=== PATIENT | male | born 2000 | race African-American/Black ===

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

== ENCOUNTER 2022-07-10 07:07 | Emergency (ER) | payer OTHER ==
[2022-07-10 07:58] LABS: #Monocytes 0.5 10x3/uL (0.0-1.1); #Neutrophils 3.5 10x3/uL (1.5-8.4); %Basophils 0.3 % (0.0-2.0); %Eosinophils 0.6 % (0.0-6.0); %Lymphocytes 40.1 % (18.0-47.0); %Monocytes 7.5 % (0.0-10.0); %Neutrophils 51.4 % (40.0-75.0); Hemoglobin 14.9 g/dL (13.5-17.5); Mean Corpuscular HGB CONC 34.4 g/dL (32.0-36.0); Mean Corpuscular Hemoglobin 29.5 pg (27.0-33.0); Mean Corpuscular Volume 85.7 fl (81.2-95.1); Mean Platelet Volume 8.4 fl (7.4-10.4); Platelet Count 322 10x3/uL (150-450); RBC Distribution Width 12.1 % (11.5-14.5); Red Blood Cell (RBC) Count 5.05 10x6/uL (4.32-5.72); White Blood Cell (WBC) Count 6.8 10x3/uL (3.5-10.5)
[2022-07-10] MEDS ORDERED: Ondansetron PF 4 MG/2 ML Vial ONE (07:59)
[2022-07-10] MEDS ORDERED: Ketorolac Tromethamine 30 MG/ML VIAL ONE (08:00)
[2022-07-10 08:13] LABS: ALT (SGPT) 17 U/L (8-55); AST (SGOT) 22 U/L (5-34); Albumin 4.4 g/dL (3.5-5.0); Alkaline Phosphatase 55 U/L (50-130); Anion Gap 12 mmol/L (10-20); BUN (Urea Nitrogen) 4 mg/dL (8.9-20.6); Bilirubin, Total 1.7 mg/dL (0.2-1.2); Calc. Creatinine Clearance 0 mL/min (70-130); Calcium 9.6 mg/dL (7.8-10.44); Carbon Dioxide 27 mmol/L (22-29); Chloride 104 mmol/L (98-107); Estimated GFR 104; Globulin 2.8 g/dL (2.4-3.5); Glucose 100 mg/dL (70-105); Lipase 35 U/L (8-78); Potassium 3.3 mmol/L (3.5-5.1); Protein, Total 7.2 g/dL (6.0-8.3); Sodium 140 mmol/L (136-145)
[2022-07-10] MEDS ORDERED: Dicyclomine 20 MG TAB ONE (10:38)
== END 2022-07-10 10:55 | disposition home or self-care (01) ==
LOC: CSHERS 07:07
DX: R10.84 Generalized abdominal pain (principal); R11.2 Nausea with vomiting, unspecified
CPT/HCPCS: 74177; 80053; 83690; 85025; 96374; 96375; J1885; J2405

== ENCOUNTER 2022-07-16 15:34 | Emergency (ER) | payer OTHER ==
[2022-07-16] MEDS ORDERED: Ketorolac Tromethamine 30 MG/ML VIAL ONE (16:12)
[2022-07-16] MEDS ORDERED: Ondansetron ODT 4 MG TAB ONE (16:12)
[2022-07-16 16:17] LABS: #Eosinphils 0.1 10x3/uL (0.0-0.5); #Monocytes 0.7 10x3/uL (0.0-1.1); #Neutrophils 4.3 10x3/uL (1.5-8.4); %Basophils 0.1 % (0.0-2.0); %Lymphocytes 24.7 % (18.0-47.0); %Monocytes 10.5 % (0.0-10.0); %Neutrophils 63.7 % (40.0-75.0); Hemoglobin 14.3 g/dL (13.5-17.5); Mean Corpuscular HGB CONC 33.9 g/dL (32.0-36.0); Mean Corpuscular Hemoglobin 29.5 pg (27.0-33.0); Mean Corpuscular Volume 87.2 fl (81.2-95.1); Mean Platelet Volume 8.3 fl (7.4-10.4); Platelet Count 289 10x3/uL (150-450); RBC Distribution Width 12.3 % (11.5-14.5); Red Blood Cell (RBC) Count 4.84 10x6/uL (4.32-5.72); White Blood Cell (WBC) Count 6.7 10x3/uL (3.5-10.5)
[2022-07-16 16:30] LABS: ALT (SGPT) 14 U/L (8-55); AST (SGOT) 12 U/L (5-34); Alkaline Phosphatase 44 U/L (50-130); Anion Gap 13 mmol/L (10-20); BUN (Urea Nitrogen) Less than 4 mg/dL (8.9-20.6); Bilirubin, Total 0.7 mg/dL (0.2-1.2); Calc. Creatinine Clearance 0 mL/min (70-130); Calcium 9.1 mg/dL (7.8-10.44); Carbon Dioxide 26 mmol/L (22-29); Chloride 108 mmol/L (98-107); Estimated GFR 122; Globulin 2.1 g/dL (2.4-3.5); Glucose 101 mg/dL (70-105); Lipase 15 U/L (8-78); Protein, Total 6.1 g/dL (6.0-8.3); Sodium 143 mmol/L (136-145)
[2022-07-16 16:35] LABS: Bilirubin Neg (Negative); Blood, Urine Negative (Negative); Clarity Clear (Clear); Glucose, Urine (Dipstick) Normal (Negative); Ketone, Urine Negative (Negative); Leukocyte Negative (Negative); Nitrite Negative (Negative); Protein, Urine (Dipstick) Negative (Neg-Trace); Specific Gravity, Urine 1.015 (1.005-1.030); Urobilinogen Normal mg/dL (Less than 2)
[2022-07-16 16:43] LABS: Amphetamine Not Detected (NotDetected); Barbiturates Screen Not Detected (NotDetected); Benzodiazepine Screen Not Detected (NotDetected); Cocaine Metabolite Screen Not Detected (NotDetected); Methadone Not Detected (NotDetected); Methamphetamine Not Detected (NotDetected); Opiate Screen Not Detected (NotDetected); Oxycodone Screen Not Detected (NotDetected); Phencyclidine (PCP) Not Detected (NotDetected); THC/Cannabinoid Screen Detected (NotDetected); Tricyclic Screen Not Detected (NotDetected)
== END 2022-07-16 17:39 | disposition home or self-care (01) ==
LOC: CSHERS 15:34
DX: R10.9 Unspecified abdominal pain (principal); R11.2 Nausea with vomiting, unspecified
CPT/HCPCS: 36415; 74018; 80053; 80306; 81003; 83690; 85025; 96372; 99284; J1885; Q0162